=== PATIENT | female | born 1970 ===

== ENCOUNTER 2024-07-18 13:22 | Outpatient (AMB) | payer OTHER, SELFPAY ==
--- NOTE | 2024-07-18 13:24 | MHC.OFFVIS ---
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 Allergies NSAIDS (Non-Steroidal Anti-Inflamma Adverse Reaction (Severe, Verified 07/18/24 13:28) cough Penicillins Adverse Reaction (Severe, Verified 07/18/24 13:28) rash tramadol Adverse Reaction (Severe, Verified 07/18/24 13:28) nightmares Medication List - Last Reconciled 07/18/24 by Sultana Martin LPN acetaminophen 649.6 mg PO Q6H PRN aspirin 1 tab PO DAILY gabapentin 100 mg feeding tube BID hydromorphone 2 mg PO midodrine 5 mg PO TID modafinil 100 mg PO DAILY olanzapine 2.5 mg PO BEDTIME oxycodone 5 mg PO Q6H PRN pravastatin 40 mg PO DAILY prednisone 5 mg PO DAILY sevelamer carbonate grams PO DAILY tacrolimus mg PO trazodone 25 mg PO BEDTIME PRN HPI HPI Autoamputation of toe or finger: Details: History of Present Illness The patient is a 54-year-old female presenting with a need for comprehensive pain management evaluation. She has a complex surgical and medical history related to peripheral vascular disease, which has led to multiple amputations. Recently, she was hospitalized due to osteomyelitis, which necessitated further amputation. Her chronic pain initially managed with oxycodone has posed challenges due to suboptimal clearance and sedation. A current shortage of hydromorphone further complicates her pain management routine. The patient reports that her current pain, specifically localized to her foot, is well-controlled with hydromorphone taken mainly on dialysis days, complemented by gabapentin for nerve-related discomfort. Her significant medical history includes major depression, sarcoidosis, and renal failure, which additionally complicate her pain management plan. She is s/p heart transplant. Current concerns include potential oversedation from medications and a lack of psychiatric oversight for medications like olanzapine and modafinil. Pain Description - Onset: Chronic history post-amputation due to peripheral vascular disease - Quality: Pulsing nerve pain - Location: Primarily in the foot, post-amputation - Exacerbating factors: Dialysis complications - Relieving factors: Hydromorphone use, controlled with current regimen Physical Exam - Right foot in a dressing/cast, which was not removed. Pain Management - Affect: Major depression potentially exacerbated by chronic pain - Analgesia: Currently using hydromorphone as needed, with a history of oxycodone - Adverse Effects: Concerns regarding sedation with opioid use - Activities of Daily Living: Pain is well-controlled; focus on maintaining functional status - Aberrant Drug Related Behaviors: No current contracts for controlled substance management Physical Exam Vital Signs: Last Vital Signs Pulse 104 H 07/18/24 13:26 Resp 16 07/18/24 13:26 BP 106/61 07/18/24 13:26 BMI result Body Mass Index 17.0 Assessment & Plan Assessment & Plan (1) Chronic pain: Code(s): G89.29 - Other chronic pain Category: Medical Plan Plan - Continue hydromorphone for foot pain as needed with safe usage & prescription practices. She denies adverse effects at this time including sedation, and is not scheduled for further surgeries. - Monitor and address possible sedation effects with psychiatric services for better oversight of current medications. - Ensure coordination with nephrology. Patient was informed and verbally consented to the use of an ambient scribe for clinic note documentation during this visit. Discussion Notes During the visit, I discussed the risks and benefits of continued hydromorphone use, including potential for oversedation, and emphasized the importance of a pain management contract to ensure safe prescribing practices. I advised the patient on engaging with psychiatric services for medication oversight, particularly focusing on modafinil and olanzapine. The patient was informed about the necessity of coordination with primary healthcare providers to optimize her treatment plan, with the use of opioid contract, random pill counts and testing to ensure compliance. No further surgeries are currently anticipated, reducing the need for ongoing surgical follow-up. Patient Instructions - Continue using hydromorphone as needed for pain management. - Monitor for signs of sedation and consult if symptoms worsen. - Inform your license inspector and primary care provider about all medications you are taking. - Engage with psychiatric services to oversee medications like modafinil and olanzapine. - Attend all follow-up appointments as scheduled to reassess pain management and adjust treatment as necessary. - Ensure medication use complies with prescribed guidelines and consider signing a contract for pain management medications. Coding Level of Care Code New Pt Level 4 (80974) Diagnoses Chronic pain G89.29
[2024-07-18 13:26] VITALS: BP 106/61; PULSE 104; RESP 16; BMI 17.0
--- OUTSIDE RECORDS SUMMARY | 2024-07-18 15:04 | XMS_ITS | Clinical Summary ---
Author Organization [facility] Address [address] [facility] [address] [place] [address] Phone Care Team Providers Care Senior Administrative Services Officer Name Role Phone Lashanda Del Cid MD Primary Care Provider [phone] Allergies Active Allergy Reactions Criticality Noted Date Comments Dermatological Products, Misc. 06/23 Penicillin G 06/23/2022 Medications apixaban (ELIQUIS) 5 MG tablet Take 5 mg by mouth in the morning and 5 mg in the evening. Active bisoprolol (ZEBETA) 10 MG tablet Take 10 mg by mouth 1 (one) time each day Active Dapagliflozin Propanediol 10 MG tablet Take 10 mg by mouth 1 (one) time each day in the morning Active dofetilide (TIKOSYN) 250 MCG capsule Take 250 mcg by mouth in the morning and 250 mcg in the evening. Active midodrine (PROAMATINE) 5 MG tablet Take 5 mg by mouth in the morning and 5 mg in the evening and 5 mg before bedtime. Active sacubitril-valsa rtan (Entresto) 24-26 MG per tablet Take 1 tablet by mouth in the morning and 1 tablet in the evening. Active spironolactone (ALDACTONE) 25 MG tablet Take 25 mg by mouth 1 (one) time each day Active torsemide (DEMADEX) 20 MG tablet Take 20 mg by mouth 1 (one) time each day Active Active Problems Problem Noted Date Diagnosed Date Stage 3 chronic kidney disease 06/23/2022 Heart failure, not otherwise specified Dilated cardiomyopathy 06/23/2022 Sarcoidosis 06/23/2022 Paroxysmal atrial fibrillation 06/23/2022 Encounters Date Type Department Care Team Description 07/14/2024 Orders Only [facility] [address] [address] Tima Issa, 07/12/2024 Orders Only [facility] [address] [address] Tima Issa, DO 07/12/2024 Treatment [facility] [address] [place] [address] Tima Issa, DO End stage renal disease; Dependence on renal dialysis 07/07/2024 Orders Only [facility] [address] [place] [address] Tima Issa, DO 07/05/2024 Treatment [facility] [address] [place] [address] Jeremy Vargas MD End stage renal disease; Dependence on renal dialysis 07/02/2024 Orders Only [facility] [address] [address] Tima Issa, DO 06/28/2024 Orders Only [facility] [address] [address] Tima Issa, 06/23/2024 Orders Only [facility] [address] [address] Tima Issa, DO 06/23/2024 Treatment [facility] [address] [place] [address] Jeremy Vargas MD End stage renal disease; Dependence on renal dialysis 06/21/2024 Orders Only [facility] [address] [address] Tima Issa, DO 06/21/2024 Treatment [facility] [address] [place] [address] Tima Issa, End stage renal disease; Dependence on renal dialysis 06/09/2024 Orders Only [facility] [address] [address] Tima Issa, 06/09/2024 Treatment [facility] [place], [address] [place] [address] Tima Issa DO End stage renal disease; Dependence on renal dialysis 06/07/2024 Treatment [facility], [address] [place] [address] Jeremy Vargas MD End stage renal disease; Dependence on renal dialysis 06/07/2024 Orders Only [facility] [address] [address] Tima Issa, 06/02/2024 Orders Only [facility] [address] [address] Tima Issa, 05/31/2024 Orders Only [facility] [address] [address] Tima Issa, 05/31/2024 Treatment [facility] [place], [address] [place] [address] Tima Issa DO End stage renal disease; Dependence on renal dialysis 05/26/2024 Treatment [facility] [address] [place] [address] Tima Issa DO End stage renal disease; Dependence on renal dialysis 05/26/2024 Orders Only [facility] [address] [address] Tima Issa, 05/24/2024 Orders Only [facility] [address] [address] Tima Issa, 05/19/2024 Orders Only [facility] [address] [address] Tima Issa, DO 05/19/2024 Treatment [facility] [place] [facility] [address] [place] [address] Tima Issa, End stage renal disease; Dependence on renal dialysis 05/17/2024 Orders Only [facility] [address] [address] Tima Issa, DO 05/12/2024 Orders Only [facility] [address] [address] Tima Issa, DO 05/10/2024 Orders Only [facility] [address] [address] Tima Issa, DO 05/05/2024 Orders Only [facility] [address] [address] Tima Issa, DO 05/03/2024 Orders Only [facility] [address] [address] Tima Issa, DO 05/03/2024 Treatment [facility] [address] [place] [address] Tima Issa, End stage renal disease; Dependence on renal dialysis 04/28/2024 Orders Only [facility] [address] [address] Tima Issa, DO 04/26/2024 Orders Only [facility] [address] [address] Tima Issa, DO 04/21/2024 Orders Only [facility] [address] [address] Tima Issa, DO 04/19/2024 Treatment [facility] [address] [place] [address] Jeremy Vargas MD End stage renal disease; Dependence on renal dialysis from Last 3 Months Social History Tobacco Use Types Packs/Day Years Used Date Smoking Tobacco: Never Smokeless Tobacco: Never Tobacco Cessation:Counseling Given: No Alcohol Use Standard Drinks/Week Comments Yes 0 (1 standard drink = 0.6 oz pur e alcohol) Comments Unknown Sex and Gender Information Value Date Recorded Sex Assigned at Not on file Legal Sex Female 9:09 AM EDT Gender Identity Not on file Sexual Orientation Not on file Last Filed Vital Signs Vital Sign Reading Time Taken Comments Blood Pressure 108/62 06/23/2022 2:18 PM EDT Pulse 80 06/23/2022 2:18 PM EDT Temperature - - Respiratory Rate - - Oxygen Saturation - - Inhaled Oxygen Concentration - - Weight 74.7 kg (164 lb 9.6 oz) 06/23/2022 2:18 P M EDT Height - - Body Mass Index - - Plan of Treatment Health Maintenance Due Date Last Done Comments Breast Cancer Screening 1970 Hepatitis B Vaccine (1 of 5 - Risk Dialysis 4-dose series) 1990 Colorectal Cancer Screening: Annual FOBT 2019 Colorectal Cancer Screening: Colonoscopy 2019 Colorectal Cancer Screening: Sigmoidoscopy 2019 Pneumococcal Vaccine: 50+ Ye ars (2 of 2 - PCV) 01/28/2022 01/28/2021 Pneumococcal Vaccine: Peds ( 0 to 5 Years) and At-Risk Patients (6 to 49 Years) Discontinued 01/28/2021 Influenza Vaccine Completed 05/07/2024, , 11/27/2020, Additional history exists Procedures Procedure Name Priority Date/Time Associated Diagnosis Comments [facility] RESULTS Routine 07/14/2024 HD KINETICS Routine 07/14/2024 POST CHEMISTRY Routine 07/14/2024 CHEMISTRY Routine 07/14/2024 HEMATOLOGY Routine 07/14/2024 CHEMISTRY Routine 07/12/2024 HEMATOLOGY Routine 07/07/2024 CHEMISTRY Routine 07/07/2024 HEMATOLOGY Routine 07/02/2024 IMMUNO CHEMISTRY Routine 07/02/2024 CHEMISTRY Routine 07/02/2024 CHEMISTRY Routine 07/02/2024 CHEMISTRY Routine 06/28/2024 HEMATOLOGY Routine 06/23/2024 [facility] LAB RESULTS Routine 06/21/2024 HD KINETICS Routine 06/21/2024 POST CHEMISTRY Routine 06/21/2024 CHEMISTRY Routine 06/21/2024 HEMATOLOGY Routine 06/21/2024 HEMATOLOGY Routine 06/09/2024 CHEMISTRY Routine 06/07/2024 HEMATOLOGY Routine 06/02/2024 CHEMISTRY Routine 05/31/2024 IMMUNO CHEMISTRY Routine 05/26/2024 CHEMISTRY Routine 05/26/2024 HEMATOLOGY Routine 05/26/2024 CHEMISTRY Routine 05/26/2024 CHEMISTRY Routine 05/24/2024 HEMATOLOGY Routine 05/19/2024 CHEMISTRY Routine 05/17/2024 [facility] LAB RESULTS Routine 05/12/2024 HD KINETICS Routine 05/12/2024 POST CHEMISTRY Routine 05/12/2024 CHEMISTRY Routine 05/12/2024 HEMATOLOGY Routine 05/12/2024 CHEMISTRY Routine 05/10/2024 HEMATOLOGY Routine 05/05/2024 CHEMISTRY Routine 05/03/2024 IMMUNO CHEMISTRY Routine 04/28/2024 HEMATOLOGY Routine 04/28/2024 CHEMISTRY Routine 04/28/2024 CHEMISTRY Routine 04/28/2024 CHEMISTRY Routine 04/26/2024 CHEMISTRY Routine 04/21/2024 HEMATOLOGY Routine 04/21/2024 from Last 3 Months Results * (ABNORMAL) HD KINETICS (07/14/2024) Only the most recent of3 resultswithin the time period is included. Pathologist [facility] % Urea Reduction 85(H) 65 - 80 % [facility] 07/14/2024 07/15/2024 2:0 1 PM EDT Narrative Resulting Agency Comment Specimen source: Plasma us Tima Issa DO LAB BLOOD ORDERABLES Final Resu lt [facility] See order comments or contact performing lab Unknown, [place] * (ABNORMAL) POST CHEMISTRY (07/14/2024) Only the most recent of3 resultswithin the time period is included. BUN Post Dialysis 2(L) 6 - 19 mg/dL [facility] 07/14/2024 07/15/2024 2:0 1 PM EDT Narrative [facility] - 07/15/2024 Unless otherwise specified, test(s) performed at: [email or web address], [address] [place] [id number] [employer]: Sanjeev Dowell M.D. For any questions, please call customer service at FREQUENCY:OTHER Resulting Agency Comment Specimen source: Plasma [facility] LAB BLOOD ORDERABLES Final Resu Performing Organization Address [facility] de Phone Number [facility] See order comments or contact performing lab Unknown, [place] * (ABNORMAL) HEMATOLOGY (07/14/2024) Only the most recent of13 resultswithin the time period is included. Hemoglobin 9.4(L) 12.0 - 16.0 g/dL [facility] Hemoglobin x 3 28.2(L) 36.0 - 48.0 % [facility] 07/14/2024 07/15/2024 9:0 0 AM EDT Narrative [facility] - 07/15/2024 Unless otherwise specified, test(s) performed at: [email or web address] [address] MANAGER DATA CENTER: Sanjeev Dowell M.D. For any questions, please call customer service at FREQUENCY:OTHER Resulting Agency Comment Specimen source: Blood [facility] LAB BLOOD ORDERABLES Final Resu Performing Organization Address [facility] de Phone Number [facility] See order comments or contact performing lab Unknown, [place] * [facility] (07/14/2024) Only the most recent of20 resultswithin the time period is included. BUN 13 6 - 19 mg/dL [facility] 07/14/2024 07/15/2024 11: 22 AM EDT Narrative [facility] - 07/15/2024 Unless otherwise specified, test(s) performed at: [email or web address], [address] [place] [id number] MANA[employer] CENTER: Sanjeev Dowell M.D. For any questions, please call customer service at FREQUENCY:OTHER Resulting Agency Comment Specimen source: Serum Tima Issa DO LAB BLOOD ORDERABLES Final Resu lt Performing Organization Address City/[facility]/ZIP Co de Phone Number [facility] See order comments or contact performing lab Unknown, [place] * [facility] Lab Results (07/14/2024) Only the most recent of3 resultswithin the time period is included. spKt/V (Daugirdas II) 2.18 [facility] WSTDKT/V 2.8 [facility] eNPCR 0.38 [facility] eKt/V Gotch 1.86 [facility] e Center PCR 14.89 [facility] nPCR_HD 0.42 [facility] eKt/V ([place]) 1.88 [facility] spKt/V Gotch 2.19 [facility] ge Center eKdrt/V 1.86 [facility] 07/14/2024 07/14/2024 [facility] Ordering Provider LAB BLOOD ORDERABLES Final Result Performing Organization Address [facility] Co de Phone Number [facility] Contact Performing lab Unknown, [place] * IMMUNO CHEMISTRY (07/02/2024) Only the most recent of3 resultswithin the time period is included. Hep B Surface Ag Negative Negative [facility] 07/02/2024 07/06/2024 8:4 9 AM EDT Narrative Resulting Agency Comment Specimen source: Serum Tima Issa DO LAB BLOOD ORDERABLES Final Resu lt [facility] See order comments or contact performing lab Unknown, [place] from Last 3 Months Insurance Care Teams Senior Administrative Services Officer Relationship Specialty Start Date End Date Lashanda Del Cid MD [address] [facility] [address] [place] [address] PCP - General Family Medicine 06/23/22
== END 2024-07-18 13:50 | disposition home or self-care (01) ==
PROVIDERS: PCP Family Medicine; Referring Provider Family Medicine; Visit Provider Internal Medicine
DX: G89.29 Other chronic pain (principal)
CPT/HCPCS: 99204